=== PATIENT | male | born 1990 | race Caucasian/White ===

== ENCOUNTER 2017-07-15 07:08 | Day surgery (SDC) | payer OTHER ==
[~2017-07-15 07:08] MED LIST: CEFAZOLIN 2 GM/D5W RTU 2 GM/50 ML RTUPB IV PRN
[2017-07-15] MEDS ORDERED: HYDROMORPHONE HCL INJ/PF 2 MG/ML AMPULE ONE (08:25)
[2017-07-15] MEDS ORDERED: ONDANSETRON HCL INJ/PF 4 MG/2 ML SDV ONE (08:25)
[2017-07-15] MEDS ORDERED: PROPOFOL INJ 200 MG/20 ML VIAL IV ONE (08:25)
[2017-07-15] MEDS ORDERED: FENTANYL CITRATE INJ/PF 100 MCG/2 ML AMPUL ONE (08:25)
[2017-07-15] MEDS ORDERED: MIDAZOLAM 2 MG/2 ML INJ ONE (08:25)
[2017-07-15] MEDS ORDERED: DEXAMETHASONE SOD PHOS INJ 10 MG/1 ML VIAL ONE (08:25)
[2017-07-15] MEDS ORDERED: LIDOCAINE 2% INJ-PF (20 MG/ML) 10 ML AMPUL ONE (08:25)
[2017-07-15] MEDS ORDERED: SUCCINYLCHOLINE CHLORIDE INJ 200 MG/10 ML VIAL ONE (08:26)
[2017-07-15] MEDS ORDERED: MINERAL OIL (STERILE) 10 ML VIAL ONE (08:30)
[2017-07-15] MEDS ORDERED: BUPIVACAINE HCL 0.5%/EPI 1:200000 INJ 1.8 ML CARTRIDGE ONE (08:30)
[2017-07-15] MEDS: OXYMETAZOLINE HCL 0.05% NASAL SPRAY 15 ML BOTTLE ONE ×2 (09:05→11:05)
[2017-07-15] MEDS ORDERED: PROMETHAZINE HCL INJ 25 MG/1 ML VIAL ONE (16:13)
--- NOTE | 2017-07-17 21:29 | [facility]ARE OPERATIVE REPORT E ---
[facility] NAME: RONALD PABON AGE: 27Y DATE OF SURGERY: 07/15/2017 ROOM: PREOPERATIVE DIAGNOSIS: 1. NASAL DEFORMITIES, ACQUIRED. 2. NASAL SEPTAL DEVIATION, ACQUIRED. 3. CHRONIC NASAL DYSPNEA. 4. BILATERAL INTERIOR TURBINATE HYPERTROPHY. POSTOPERATIVE DIAGNOSIS: 1. NASAL DEFORMITIES, ACQUIRED. 2. NASAL SEPTAL DEVIATION, ACQUIRED. 3. CHRONIC NASAL DYSPNEA. 4. BILATERAL INFERIOR TURBINATE HYPERTROPHY. OPERATION: 1. Endonasal septorhinoplasty addressing the upper and lower cartilages with nasal tip complex elevation and support and stabilization. 2. Bilateral inferior turbinate reduction using a submucous resection technique. SURGEON: FLAVIA PACKER D.O. ANESTHESIA: General endotracheal tube. ANESTHESIA STAFF: Josafat Hale CRNA ESTIMATED BLOOD LOSS: 200 mL. FLUIDS: 800 mL. COMPLICATIONS: None. DRAINS: None. SPONGE COUNT: Verified. NEEDLE COUNT: Verified. MATERIALS FORWARDED SPECIMEN: None. FINDINGS: 1. The caudal septal margin was displaced into the right nasal vestibule. 2. Depressed upper lateral cartilage. 3. Dorsal irregularities involving bone and cartilage. 4. Nasal septal deformities with serpentine-like deformity with bowing deformities as well. 5. Maxillary crest spurs and septal spurs. 6. Bilateral inferior turbinate hypertrophy. 7. Broad columellar base with inadequate nasal tip complex support. 8. The perpendicular plate of ethmoid bone/septal bone adjacent the quadrangular cartilage was noted to be significantly thickened. INDICATIONS: This is a 27-year-old white male who was seen and evaluated in the [facility] office. The patient had been referred for, and he complained of, a longstanding history of nasal dyspnea over the years. The patient reports history of nasal trauma with resulting nasal deformities. The patient denies history of acute recurrent or chronic sinus disease. The patient has desire to undergo nasal surgery to improve functional nasal air flow. After extensive discussion with the patient, recommendation and plan was for functional endonasal/closed septorhinoplasty and bilateral inferior turbinate reduction. The procedures and all of the risks and complications were discussed in detail with the patient. He voiced an understanding of the described surgical plan, agreed to proceed, and consent was obtained. PROCEDURE: The patient was taken to the main operating room and placed on the operating room table in the supine position. Appropriate monitor placed. Using mask and IV access, general anesthesia was induced. The patient was next transorally intubated without difficulty. The patient was then positioned for nasal surgery. He underwent a nasal examination with injection of Marcaine with epinephrine to establish a nasal block. Two Afrin-soaked neuro patties were placed per nasal passage. At this point, the patient was prepped and draped in the usual fashion for nasal surgery. The Afrin-soaked neuro patties were removed. A hemitransfixion incision was performed with elevation of the mucoperichondrial and periosteal flap. There was scar tissue and cartilage deformities encountered during this process. The bony cartilaginous junction was identified and divided with the most deviated portions of septal bone and cartilage removed without difficulty. There was a greater than 1.5 x 1.5 cm cartilaginous L-strut that was preserved. At this point, the maxillary crest spur and septal spurs were removed with a V-gouge, osteotome, and through cutting instruments without difficulty. Also due to the thin and tenuous nature of the septal mucosa in areas of the septal bone and cartilaginous deformities, there was disruption/rent formation at two locations in the mucosal flaps, one on the right, and one on the left. At this point, the septal cartilage was mobilized from the maxillary crest and inferior nasal spine. At this point, attention was turned to the inferior turbinate reduction on each side. The turbinate bipolar wand was used to make 2 passes per side. Next, the Prashant scissors were used to enter the anterior aspect of each interior turbinate followed by use of a Slade elevator to elevate tissue in a submucosal plane. The turbinate microdebrider system at a setting of 1500 rpm was next used to perform submucous resection on each side. The Allyn elevator was then used to outfracture each inferior turbinate followed by trimming of excessive/redundant mucosa. The mucosal margins were then reapproximated with 5-0 chromic suture. At this point, there was a right modified marginal incision created with elevation of the dorsal skin soft tissue envelope. There was dorsal rasp work performed to recontour dorsal irregularities. There was an intranasal incision on the left to create a precise pocket for an endonasal medical physics teacher graft which was fashioned out of previously harvested cartilage. Once this graft was set in place, the incision site was reapproximated with 5-0 chromic suture. There was a caudal septal graft that was fashioned out of previously harvested cartilage. This graft was set in place on the left side of the L-strut and secured in place with Prolene suture. There was a septal straightening suture that was also placed with Prolene. Once complete, the septum with graft was set back in the midline and fixed in place at the anterior nasal spine at the interior nasal spine with Prolene suture. Once complete, the nose was thoroughly irrigated and suctioned with adequate hemostasis noted. The remaining cartilage was placed back between the mucosal flaps and banked. The septal mucosal rents were repaired with chromic suture. At this point, attention was turned to the medial selam/medial crura foot plates. There were incisions performed on each side with sharp dissection to the cartilage. Next, a Prolene suture was passed for columellar base narrowing and stabilization of the nasal tip complex. At this point, there was rolled Surgicel placed intranasally deep to the upper lateral cartilages on each side. Next, there was 1 Carballo silicone nasal splint with bacitracin ointment placed per nasal passage. These were secured at the caudal aspect with 4-0 Prolene suture. The patient's nose was then cleaned and dried followed by placement of Mastisol and Steri-Strips over the nasal dorsum. The patient was then returned to the anesthesia staff and was allowed to emerge from general anesthesia. The patient was extubated in the main operating room and was then transported to the postanesthesia recovery unit in stable condition. There were no complications. DICTATING PHYSICIAN: FLAVIA PACKER D.O. [id number] Y#: [id number] ID: [id number] JOB#: [id number] ACCT: [id number] cc:FLAVIA PACKER D.O. >
== END 2017-07-15 16:45 | disposition home or self-care (01) ==
LOC: SC 07:08
PROVIDERS: ATTEND Otolaryngology
PROC: 09TL8ZZ Resection of Nasal Turbinate, Via Natural or Artificial Opening Endoscopic (ICD-10-PCS; principal; 2017-07-15 08:15)
PROC: 09UK0JZ Supplement Nasal Mucosa and Soft Tissue with Synthetic Substitute, Open Approach (ICD-10-PCS; 2017-07-15 08:15)
DX: R06.09 Other forms of dyspnea (principal); M95.0 Acquired deformity of nose; J34.2 Deviated nasal septum; J34.3 Hypertrophy of nasal turbinates; Z88.5 Allergy status to narcotic agent; Z88.1 Allergy status to other antibiotic agents
CPT/HCPCS: 82962; 30140; 30420; J2250; J3490 ×4; J3010; J1170; J2550; J0330; J2405; J2704; J1100; J0690; 170